=== PATIENT | male | born 1975 | race Caucasian/White ===

== ENCOUNTER 2018-01-23 07:48 | Emergency (ER) | payer SELFPAY ==
[2018-01-23 07:49] VITALS: BP 150/90; PULSE 77; RESP 16; TEMP 36.9; O2SAT 98; BMI 24.7
[2018-01-23] MEDS: 0.9% Normal Saline 1,000 ML 1000 ML IV (08:07)
[2018-01-23] MEDS: Ondansetron 4 MG/2 ML Vial IV (08:15)
[2018-01-23 08:17] LABS: Absolute Lymphocyte Count 3.86 X10^3/ul (0.83-4.51); Absolute Neutrophil Count 8.5 X10^3/uL (2.0-7.7); Basophil# 0.02 X10^3/uL; Basophil% 0.1 % (0-1); Eosinophil# 0.03 X10^3/uL; Eosinophils% 0.2 % (0-5); Hematocrit 49.7 % (40-54); Lymphocyte # 3.86 X10^3/ul (4.0); Mean Corp Hgb Conc 36.2 g/gl (32-36); Mean Corpuscular Hgb 33.1 pg (27.0-32.0); Mean Corpuscular Volume 91.4 fL (80-94); Mean Platelet Vol. 10.8 fl (6.2-12.0); Monocyte% 9.4 % (0-10); Neutrophil # 8.54 X10^3/uL (2.7-7.7); Platelet Count 287 K/mm3 (150-450); RBC Distribution Width CV 12.3 % (11.6-14.6); RBC Distribution Width SD 41.2 fl (35.1-43.9); Red Blood Count 5.44 M/mm3 (4.6-6.2); White Blood Count 13.8 K/mm3 (4.4-11.0)
[2018-01-23 08:22] LABS: POSITIVE COUNT NO; POSITIVE DIFFERENTIAL NO; POSITIVE MORPHOLOGY NO
[2018-01-23 08:35] LABS: Anion Gap 9 (5-15); BUN 18 mg/dL (7-18); BUN/Creat Ratio 17.5 RATIO (10-20); Calcium,Total 9.2 mg/dL (8.5-10.1); Chloride 101 mmol/L (98-107); Creatinine, Serum 1.03 mg/dL (0.70-1.30); EST Glomerular Filtration Rate 83 mL/min (>60); Est Glom Filt Rate - Afr Amer 101 mL/min (>60); Estimated Creatinine Clearance 100.45 ml/min; Glucose 98 mg/dL (74-106); Potassium 3.4 mmol/L (3.5-5.1); Sodium Level 135 mmol/L (136-145)
--- NOTE | 2018-01-23 08:56 | ED.VISSUMM ---
- ER Visit Summary Date of Service: 01/23/18 Chief Complaint: [Vomiting] History of Present Illness: The patient is a 42 M [presents to the emergency department with complaint of vomiting that started 3 days ago. Patient states that he is in [place] for work and arrived about 3 days ago. Patient is from [place]. Patient states that he thinks he picked something up in the [place]. Patient denies any diarrhea. Patient denies any abdominal pain. Patient had severe episodes of vomiting over the last 2 days but has not had any today. Today patient just feels very weak. Patient denies urinary symptoms. He denies sick contacts. Denies eating any questionable or undercooked foods. Patient denies fever.] Physical Examination: [HEENT-PERRLA, EOMI. Cranial nerves II through XII grossly intact. TMs clear. Mucous membranes moist. No adenopathy. Cardiovascular-regular rate and rhythm without murmur or ectopy Lungs-clear to auscultation, chest wall stable without crepitus or subcu emphysema Abdomen-normoactive bowel sounds, soft, nontender, no rebound or rigidity, no peritoneal signs. Extremities-intact ?4, normal range of motion, normal pulses, atraumatic] Test Results: [CBC with differential obtained showed a white count of 13.8, hemoglobin 18, hematocrit 49.7, platelets 287. Chemistries showed a sodium of 135, potassium 3.4, chloride 101, CO2 25, glucose 98, BUN 18, creatinine 1.03.] Emergency Department Course and Treatment: [Patient received a liter normal same fluid bolus as well as Zofran 4 mg IV and 40 mEq of potassium chloride p.o.] Treatment Plan: [Patient will be given a prescription for Zofran and advised to push fluids] Disposition: [Discharged home in stable condition. Patient advised to return if persistent vomiting, dehydration, fever, abdominal pain, or condition should worsen in any way.] Impression: [Vomiting-viral] This note was generated with [employer] dictation software. It may contain incorrect words, spelling, and punctuation that were not noted in review of the chart prior to signing ED Disposition - Plan for ED Patient: Chief Complaint: Nausea/Vomiting Referrals: [facility] Doctor,Out of [Primary Care Provider] -
--- NOTE | 2018-01-23 08:59 | ED.DCSUM_ITS ---
- ER Visit Summary Date of Service: 01/23/18 Chief Complaint: [Vomiting] History of Present Illness: The patient is a 42 M [presents to the emergency department with complaint of vomiting that started 3 days ago. Patient states that he is in [place] for work and arrived about 3 days ago. Patient is from [place]. Patient states that he thinks he picked something up in the [place]. Patient denies any diarrhea. Patient denies any abdominal pain. Patient had severe episodes of vomiting over the last 2 days but has not had any today. Today patient just feels very weak. Patient denies urinary symptoms. He denies sick contacts. Denies eating any questionable or undercooked foods. Patient denies fever.] Physical Examination: [HEENT-PERRLA, EOMI. Cranial nerves II through XII grossly intact. TMs clear. Mucous membranes moist. No adenopathy. Cardiovascular-regular rate and rhythm without murmur or ectopy Lungs-clear to auscultation, chest wall stable without crepitus or subcu emphysema Abdomen-normoactive bowel sounds, soft, nontender, no rebound or rigidity, no peritoneal signs. Extremities-intact ?4, normal range of motion, normal pulses, atraumatic] Test Results: [CBC with differential obtained showed a white count of 13.8, hemoglobin 18, hematocrit 49.7, platelets 287. Chemistries showed a sodium of 135, potassium 3.4, chloride 101, CO2 25, glucose 98, BUN 18, creatinine 1.03.] Emergency Department Course and Treatment: [Patient received a liter normal same fluid bolus as well as Zofran 4 mg IV and 40 mEq of potassium chloride p.o. ] Treatment Plan: [Patient will be given a prescription for Zofran and advised to push fluids] Disposition: [Discharged home in stable condition. Patient advised to return if persistent vomiting, dehydration, fever, abdominal pain, or condition should worsen in any way.] Impression: [Vomiting-viral] This note was generated with [employer] dictation software. It may contain incorrect words, spelling, and punctuation that were not noted in review of the chart prior to signing ED Disposition - Plan for ED Patient: Chief Complaint: Nausea/Vomiting Referrals: [facility] Doctor,Out of [Primary Care Provider] -
--- NOTE | 2018-01-23 08:59 | ED.DEP ---
ED Disposition - Plan for ED Patient: Chief Complaint: Nausea/Vomiting Instructions: ED Nausea Vomiting Prescriptions: Ondansetron [Zofran Odt] 4 mg PO Q8H PRN PRN #10 tab PRN Reason: Nausea Referrals: [facility],Out of [Primary Care Provider] - Fast,Dionna, DO [NON-STAFF] - 3-5 Days if not improving
[2018-01-23 09:02] VITALS: BP 122/76; PULSE 84; RESP 16; O2SAT 98
[2018-01-26 14:04] LABS: Pathologist Review Reviewed
== END 2018-01-23 09:03 | disposition home or self-care (01) ==
LOC: ED 08:26
PROVIDERS: Emergency Provider Emergency Medicine
DX: K52.9 Noninfective gastroenteritis and colitis, unspecified (principal); Z72.0 Tobacco use
CPT/HCPCS: 80048; 85025; 99283; J7030; J2405